=== PATIENT | male | born 1990 | race African-American/Black ===

== ENCOUNTER 2019-02-26 00:16 | Emergency (ER) | payer SELFPAY ==
--- NOTE | 2019-02-26 01:33 | ED ---
GI/ HPI - HPI Summary HPI Summary: 28-year-old female presents with right inguinal area swelling for past two days. He states that he feels a mass in the area. He does not lift weights and is not currently working. He denies any fevers or chills. He states he has slightly decreased appetite. Denies any diarrhea constipation. No urinary symptoms. No testicular pain. No penile discharge. No hematuria or dysuria. never had this before. denies any cough. has no medical conditions. - History of Current Complaint Chief Complaint: EDGeneral Time Seen by Provider: 02/26/19 01:23 Stated Complaint: "POS HERNIA" PER PT Pain Intensity: 7 - Allergy/Home Medications Allergies/Adverse Reactions: Allergies Allergy/AdvReac Type Severity Reaction Status Date / Time No Known Allergies Allergy Verified 02/26/19 00:21 Home Medications: Home Medications NK [No Home Medications Reported] 02/26/19 [History Confirmed 02/26/19] PMH/Surg Hx/FS Hx/Imm Hx Endocrine/Hematology History: Denies: Hx Anticoagulant Therapy Respiratory History: Denies: Hx Asthma Infectious Disease History: Yes Infectious Disease History: Denies: Traveled Outside the [place] in Last 30 Days - Social History Alcohol Use: Occasionally Substance Use Type: Reports: None Review of Systems Negative: Fever Negative: Chest Pain Negative: Shortness Of Breath Positive: other - mass felt in inguinal area All Other Systems Reviewed And Are Negative: Yes Physical Exam Triage Information Reviewed: Yes Vital Signs On Initial Exam: Initial Vitals Temp Pulse Resp BP Pulse Ox 99.1 F 85 16 146/90 98 02/26/19 00:18 02/26/19 00:18 02/26/19 00:18 02/26/19 00:18 02/26/19 00:18 Vital Signs Reviewed: Yes Appearance: Positive: Well-Appearing Skin: Positive: Warm, Dry Head/Face: Positive: Normal Head/Face Inspection Eyes: Positive: Normal, Conjunctiva Clear ENT: Positive: Pharynx normal Respiratory/Lung Sounds: Positive: Clear to Auscultation, Breath Sounds Present Cardiovascular: Positive: Normal, RRR Abdomen Description: Positive: Nontender, Soft, Other: - mass felt in inguinal area on right when coughs Bowel Sounds: Positive: Present Musculoskeletal: Positive: Normal Neurological: Positive: Normal Psychiatric: Positive: Normal Diagnostics - Vital Signs Vital Signs Temp Pulse Resp BP Pulse Ox 02/26/19 00:18 99.1 F 85 16 146/90 98 - Laboratory Lab Statement: Any lab studies that have been ordered have been reviewed, and results considered in the medical decision making process. GIGU Course/Dx - Course Course Of Treatment: 28-year-old female presents with right inguinal area swelling for past two days. He states that he feels a mass in the area. He does not lift weights and is not currently working. He denies any fevers or chills. He states he has slightly decreased appetite. Denies any diarrhea constipation. No urinary symptoms. No testicular pain. No penile discharge. No hematuria or dysuria. never had this before. denies any cough. has no medical conditions. on exam has inguinal mass felt when coughs. told can follow up with surgery. told not to lift heavy objects. patient understand and agrees with plan. - Diagnoses Differential Diagnoses - Male: Urinary Tract Infection, Other - inguinal hernia , lymphadenopathy Provider Diagnoses: Inguinal hernia Discharge - Sign-Out/Discharge Documenting (check all that apply): Patient Departure Patient Received Moderate/Deep Sedation with Procedure: No - Discharge Plan Condition: Good Disposition: HOME Patient Education Materials: Inguinal Hernia (ED) Referrals: No Primary Care Phys,NOPCP [Primary Care Provider] - Justin Reina MD [Medical Doctor] - Additional Instructions: avoid weight lifting or heavy lifting Take tyenlol or ibuprofen every 6 hours for pain Follow up with surgery Return to ED if develop any new or worsening symptoms - Billing Disposition and Condition Condition: GOOD Disposition: Home
[2019-02-26 01:59] VITALS: BP 141/80
== END 2019-02-26 01:50 | disposition home or self-care (01) ==
LOC: ED 00:16
DX: K40.90 Unilateral inguinal hernia, without obstruction or gangrene, not specified as recurrent (principal)
CPT/HCPCS: 99282